=== PATIENT | female | born 1975 | race Caucasian/White ===

== ENCOUNTER → 2021-03-29 | Outpatient (CLI) | payer OTHER ==
[~2021-03-29] MED LIST: CINNAMON PLUS1 EACH PO; GARCINIA CAMBO1 EACH PO; GINGER250 MG PO; IBU800 MG PO; LANSOPRAZOLE30 MG PO; VITAMIN B-250 MG PO; VITAMIN C500 M4 PO; ZANAFLEX 4 MG TA4 MG PO
== END ==
LOC: MAMO 12:58
DX: R92.8 Other abnormal and inconclusive findings on diagnostic imaging of breast (principal)
CPT/HCPCS: 77065; G0279

== ENCOUNTER → 2021-06-27 | Outpatient (CLI) | payer OTHER ==
[2021-06-27 10:28] LABS: HEMOGLOBIN 14.2 gm/dl (12.3-15.3); RED BLOOD COUNT 4.88 M/UL (4.00-5.10); WHITE BLOOD COUNT 8.3 K/UL (4.5-11.0)
[2021-06-27 10:59] LABS: BUN/CREATININE RATIO 19 (0-10)
== END ==
LOC: EROP 10:06
PROVIDERS: Internal Medicine
DX: E78.5 Hyperlipidemia, unspecified (principal)
CPT/HCPCS: 36415; 80048; 80061; 80076; 84443; 85025

== ENCOUNTER → 2021-07-15 | Outpatient (CLI) | payer OTHER | LOC: MRI 11:00 | DX: H53.9 Unspecified visual disturbance (principal); R20.0 Anesthesia of skin; R20.2 Paresthesia of skin; R20.9 Unspecified disturbances of skin sensation | CPT/HCPCS: 70553; A9577 ==

== ENCOUNTER → 2021-10-04 | Outpatient (CLI) | payer OTHER | LOC: MAMO 12:42 | DX: Z12.31 Encounter for screening mammogram for malignant neoplasm of breast (principal); R92.8 Other abnormal and inconclusive findings on diagnostic imaging of breast | CPT/HCPCS: 77066; G0279 ==

== ENCOUNTER → 2022-06-20 | Outpatient (CLI) | payer BC | LOC: KOH-I 11:00 → CT 11:00 → KOH-I 11:11 | DX: H53.9 Unspecified visual disturbance (principal); R20.0 Anesthesia of skin; R51.9 Headache, unspecified; R20.2 Paresthesia of skin | CPT/HCPCS: 70450 ==

== ENCOUNTER → 2022-07-06 | Outpatient (CLI) | payer BC ==
[2022-07-06 11:46] LABS: HEMOGLOBIN 14.1 gm/dl (12.3-15.3); RED BLOOD COUNT 4.57 M/UL (4.00-5.10); WHITE BLOOD COUNT 8.3 K/UL (4.5-11.0)
[2022-07-06 12:22] LABS: BUN/CREATININE RATIO 16 (0-10)
== END ==
LOC: LAB 11:03
PROVIDERS: Internal Medicine
DX: E78.5 Hyperlipidemia, unspecified (principal)
CPT/HCPCS: 36415; 80048; 80061; 80076; 84443; 85025